=== PATIENT | male | born 1950 | race Caucasian/White ===

== ENCOUNTER 2017-06-10 18:25 | Inpatient (IN) | payer OTHER ==
[~2017-06-10] VITALS: Ht 162.6 cm; Wt 74.1 kg
[~2017-06-10 18:25] MED LIST: DILAUDID2 MG PO; FLOMAX0.4 MG PO; MOTRIN600 MG PO
[2017-06-10 19:44] LABS: HEMATOCRIT 31.1 % (38.0-50.0); HEMOGLOBIN 10.9 G/DL (12.5-16.6); MCV 91.2 FL (86-99); PLATELET COUNT 214 K/uL (156-360); RBC DIS.WIDTH-CV 13.5 % (11.8-14.6); RBC DIS.WIDTH-SD 45.7 % (39-53); RED BLOOD COUNT 3.41 M/uL (4.00-5.50); WHITE BLOOD COUNT 4.2 K/uL (4.1-10.2)
[2017-06-10 20:05] LABS: CHLORIDE 114 mEq/L (99-109); POTASSIUM 4.3 mEq/L (3.7-5.4); SODIUM 140 mEq/L (136-147)
[2017-06-10 20:07] LABS: GLUCOSE 107 mg/dL (70-99)
[2017-06-10 20:08] LABS: TOTAL PROTEIN 6.9 g/dL (6.4-8.3)
[2017-06-10 20:09] LABS: TOTAL BILIRUBIN 0.5 mg/dL (0.0-1.0)
[2017-06-10 20:11] LABS: ALKALINE PHOSPHATASE 116 IU/L (3-129); CREATININE 3.2 mg/dL (0.6-1.3); GFR ESTIMATE (CALCULATED) 21 mL/min/ (58.99-99999)
[2017-06-10 20:12] LABS: UREA NITROGEN (BUN) 62 mg/dL (9-23)
[2017-06-10 20:13] LABS: AST (GOT) 17 IU/L (2-34)
[2017-06-10 20:14] LABS: ALT (GPT) 16 IU/L (3-49)
[2017-06-10] MEDS ORDERED: VIRTUSSIN AC L118 ML PO (20:44)
[2017-06-10] MEDS ORDERED: BENZONATATE200 MG PO (20:45)
[2017-06-10] MEDS ORDERED: VENTOLIN HFA18 GM IH (20:45)
[2017-06-10] MEDS ORDERED: BENAZEPRIL HCL40 MG PO (20:46)
[2017-06-10] MEDS ORDERED: SIMVASTATIN20 MG PO (20:47)
[2017-06-10] MEDS ORDERED: AMLODIPINE BESY10 MG PO (20:48)
[2017-06-10] MEDS ORDERED: CARVEDILOL25 MG PO (20:48)
[2017-06-10] MEDS ORDERED: AZITHROMYCIN250 MG PO (20:49)
[2017-06-10 20:56] LABS: APPEARANCE CLEAR ((CLEAR)); BILIRUBIN NEGATIVE; BLOOD NEGATIVE; COLOR YELLOW ((YELLOW)); GLUCOSE (STRIP) NEGATIVE; KETONES NEGATIVE; LEUKOCYTES NEGATIVE; NITRITE NEGATIVE; PROTEIN (STRIP) 100; SPECIFIC GRAVITY 1.014 (1.000-1.030); UROBILINOGEN 0.2 MG/DL (0.2-1.0)
[2017-06-10 21:02] LABS: BACTERIA RARE /HPF; EPITHELIAL CELLS RARE /HPF; MUCUS TRACE /LPF; RED BLOOD CELLS 0-5 /HPF (0-5); UCUL ADDED? NO; WHITE BLOOD CELLS 0-5 /HPF (0-5)
[2017-06-10] MEDS ORDERED: LO-DOSE ASPIRIN81 M1 PO (21:36)
[2017-06-10] MEDS ORDERED: AYR SALINE50 ML BOTH NARES (21:36)
[2017-06-10 23:45] LABS: URIC ACID 11.2 mg/dL (3.1-9.2)
[2017-06-11] VITALS (7 sets, daily range): BP systolic 130–141; BP diastolic 67–80
[2017-06-11 03:00] LABS: BASOPHIL (%) 0.3 % (0-1); EOSINOPHIL (%) 2.2 % (0-5); EOSINOPHIL COUNT 0.1 K/uL (0-0.3); HEMATOCRIT 26.2 % (38.0-50.0); IMMATURE GRANULOCYTE (%) 0.5 % (0.0-0.7); LYMPHOCYTE (%) 24.1 % (15-42); LYMPHOCYTE COUNT 0.9 K/uL (1.0-2.8); MCH 31.1 PG (29.0-34.0); MCHC 34.4 G/DL (30.0-36.0); MCV 90.7 FL (86-99); MONOCYTE (%) 10.8 % (3-12); MONOCYTE COUNT 0.4 K/uL (0-0.8); NEUTROPHIL (%) 62.1 % (45-76); NEUTROPHIL COUNT 2.3 K/uL (1.8-6.4); PLATELET COUNT 168 K/uL (156-360); RBC DIS.WIDTH-CV 13.5 % (11.8-14.6); RBC DIS.WIDTH-SD 44.8 % (39-53); RED BLOOD COUNT 2.89 M/uL (4.00-5.50); WHITE BLOOD COUNT 3.7 K/uL (4.1-10.2)
[2017-06-11 03:15] LABS: CHLORIDE 117 mEq/L (99-109); POTASSIUM 4.2 mEq/L (3.7-5.4); SODIUM 142 mEq/L (136-147)
[2017-06-11 03:16] LABS: GLUCOSE 89 mg/dL (70-99)
[2017-06-11 03:21] LABS: UREA NITROGEN (BUN) 54 mg/dL (9-23)
[2017-06-11 03:26] LABS: CREATININE 2.5 mg/dL (0.6-1.3); GFR ESTIMATE (CALCULATED) 28 mL/min/ (58.99-99999)
[2017-06-11 04:02] LABS: BICARBONATE 14.3 mEq/L (22-26); CARBOXY HGB 2.7 % (0-5); METHEMOGLOBIN 1.3 % (0-1.5); PCO2 29 mm Hg (35-45); PO2 73 mm Hg (80-100)
[2017-06-11 04:03] LABS: COMMENTS - BLOOD GASES A+C+; FI02 21 %; SITE LR
[2017-06-11 05:44] LABS: IRON 34 MCG/DL (35-150); TRANSFERRIN (TIBC) 172.4 mg/dL (215-380); TRANSFERRIN SATUR. 20 % (20-55)
[2017-06-11 08:20] LABS: FERRITIN 245 NG/ML (22-322)
[2017-06-11 08:33] LABS: THYROTROPIN (TSH) 3.6 MIU/L (0.4-5.5)
[2017-06-11 13:37] LABS: C4 COMPLEMENT 57 MG/DL (10-40)
[2017-06-11 14:35] LABS: HEPATITIS B SURFACE ANTIGEN Nonreactive; HEPATITIS C ANTIBODY Nonreactive
[2017-06-11 14:36] LABS: ANTI-HEPATITIS A VIRUS (IGM) Nonreactive
[2017-06-11 14:37] LABS: ANTI-HEPATITIS B CORE (IGM) Nonreactive
[2017-06-11 15:09] LABS: CHLORIDE 114 MEQ/L (99-109); CREATININE 2.3 MG/DL (0.6-1.3); GFR ESTIMATE (CALCULATED) 30 mL/min/ (58.99-99999); SODIUM 140 MEQ/L (136-147); UREA NITROGEN (BUN) 45 mg/dL (9-23)
[2017-06-11 15:14] LABS: GLUCOSE 134 mg/dL (70-99)
[2017-06-12 04:00] VITALS: BP 144/76
[2017-06-12 04:26] LABS: UR CREATININE CONCENTRATION 84.7 MG/DL
[2017-06-12 05:46] LABS: BASOPHIL (%) 0.5 % (0-1); EOSINOPHIL (%) 1.3 % (0-5); EOSINOPHIL COUNT 0.1 K/uL (0-0.3); HEMATOCRIT 25.9 % (38.0-50.0); HEMOGLOBIN 9.1 G/DL (12.5-16.6); IMMATURE GRANULOCYTE (%) 0.5 % (0.0-0.7); LYMPHOCYTE (%) 19.2 % (15-42); LYMPHOCYTE COUNT 0.7 K/uL (1.0-2.8); MCH 31.4 PG (29.0-34.0); MCHC 35.1 G/DL (30.0-36.0); MCV 89.3 FL (86-99); MONOCYTE (%) 11.4 % (3-12); MONOCYTE COUNT 0.4 K/uL (0-0.8); NEUTROPHIL (%) 67.1 % (45-76); NEUTROPHIL COUNT 2.6 K/uL (1.8-6.4); PLATELET COUNT 192 K/uL (156-360); RBC DIS.WIDTH-SD 42.6 % (39-53); WHITE BLOOD COUNT 3.9 K/uL (4.1-10.2)
[2017-06-12 06:10] LABS: CHLORIDE 110 MEQ/L (99-109); GFR ESTIMATE (CALCULATED) 36 mL/min/ (58.99-99999); GLUCOSE 150 mg/dL (70-99); MAGNESIUM 2.4 mg/dl (1.3-2.7); PHOSPHORUS 2.6 mg/dL (2.5-4.9); POTASSIUM 3.2 MEQ/L (3.7-5.4); SODIUM 143 MEQ/L (136-147); UREA NITROGEN (BUN) 29 mg/dL (9-23)
[2017-06-12 07:29] VITALS: BP 144/88
[2017-06-12 11:12] VITALS: BP 104/71
[2017-06-12 15:46] VITALS: BP 130/82
[2017-06-12 20:21] VITALS: BP 130/79
[2017-06-12 23:37] VITALS: BP 129/74
[2017-06-13 06:36] LABS: CHLORIDE 109 MEQ/L (99-109); CREATININE 1.9 MG/DL (0.6-1.3); GFR ESTIMATE (CALCULATED) 38 mL/min/ (58.99-99999); GLUCOSE 114 mg/dL (70-99); POTASSIUM 3.8 MEQ/L (3.7-5.4); SODIUM 143 MEQ/L (136-147); UREA NITROGEN (BUN) 15 mg/dL (9-23)
[2017-06-13 07:50] VITALS: BP 143/80
[2017-06-13 10:43] LABS: MYELOPEROXIDASE ANTIBODY (MPO) <1.0 AI (<1.0); PROTEINASE-3 ANTIBODY+ <1.0 AI (<1.0)
[2017-06-13 11:51] LABS: HEMOGLOBIN A1c (GLYCOHEMOGLOB) 6.1 % (Below 5.7)
[2017-06-13 13:06] VITALS: BP 126/81
[2017-06-13 15:34] VITALS: BP 138/74
[2017-06-13 20:53] VITALS: BP 140/79
[2017-06-14 01:07] VITALS: BP 143/78
[2017-06-14 04:40] VITALS: BP 159/82
[2017-06-14 07:05] VITALS: BP 133/77
[2017-06-14 09:57] LABS: CHLORIDE 110 MEQ/L (99-109); CREATININE 1.8 MG/DL (0.6-1.3); GFR ESTIMATE (CALCULATED) 40 mL/min/ (58.99-99999); GLUCOSE 103 mg/dL (70-99); POTASSIUM 4.1 MEQ/L (3.7-5.4); SODIUM 140 MEQ/L (136-147); UREA NITROGEN (BUN) 12 mg/dL (9-23)
[2017-06-14] MEDS ORDERED: TAMSULOSIN HCL0.4 MG PO (11:23)
[2017-06-14] MEDS ORDERED: CEFTIN500 MG PO (11:24)
== END 2017-06-14 13:10 | disposition home or self-care (01) | DRG 193 ==
LOC: EME 18:25 → 4SOUTH 22:21 → EDOF 22:21 → ENRESERV 22:22 → 4SOUTH 23:52
PROVIDERS: Family Medicine; Hospitalist; Internal Medicine Nephrology; Physician Assistant
DX: J18.9 Pneumonia, unspecified organism (principal); N17.0 Acute kidney failure with tubular necrosis; N20.0 Calculus of kidney; N18.3 Chronic kidney disease, stage 3 (moderate); N40.1 Benign prostatic hyperplasia with lower urinary tract symptoms; I12.9 Hypertensive chronic kidney disease with stage 1 through stage 4 chronic kidney disease, or unspecified chronic kidney disease; E87.2 Acidosis; R73.02 Impaired glucose tolerance (oral); E78.5 Hyperlipidemia, unspecified; D64.9 Anemia, unspecified; E86.0 Dehydration; E87.6 Hypokalemia; R33.8 Other retention of urine; Z87.442 Personal history of urinary calculi; Z82.49 Family history of ischemic heart disease and other diseases of the circulatory system
CPT/HCPCS: 36600; 71250; 74176; 80048; 80048 91; 80051; 80053; 80074; 81003; 82436; 82570; 82728; 82803; 83036; 83540; 83605; 83735; 83930; 83935; 84100; 84133; 84156; 84300; 84443; 84466; 84550; 85025; 85027; 86021 90; 86038; 86160; 86162 90; 87040; 87070; 87205; 87449; 89190; 99202; 99281; 99285; J0295; J0456; J1644; J1956; J3480; J7030; J7050; J7070